=== PATIENT | male | born 1995 | race Caucasian/White ===

== ENCOUNTER 2022-07-18 15:40 | Emergency (ER) | payer BC ==
[2022-07-18 15:51] VITALS: BP 148/92; PULSE 80; RESP 16; TEMP 98
[2022-07-18] MEDS ORDERED: DIPH,PERTUS(ACELL)TETVAC-LF 0.5 ML VIAL IM ONE (16:32)
[2022-07-18] MEDS ORDERED: LIDOCAINE 1% INJ 10MG/ML (30 ML VIAL-PF) SQ ONE (16:33)
--- NOTE | 2022-07-18 16:40 | ED ---
Wound/Laceration HPI - General Chief Complaint: Wound/Laceration Stated Complaint: L hand lac Time Seen by Provider: 07/18/22 16:13 Source: patient Mode of arrival: ambulatory - History of Present Illness Initial Comments: Patient is a 26-year-old male presents to the emergency department with a chief complaint of left thumb injury. Patient accidentally drilled his left thumb n ail. He reports minimal pain. No numbness or tingling. Tetanus not up-to-date. Patient already takes Motrin 600 [id number]. - Related Data Home Medications Medication Instructions Recorded Confirmed Loratadine [Claritin] 10 mg PO DAILY PRN 08/02/14 10/21/14 Previous Rx's Medication Instructions Recorded Docusate [Colace] 100 mg PO BID #30 capsule 10/21/14 Hydrocodone/Acetaminophen [[place] 1 each PO Q6HR PRN #30 tab 10/21/14 5-325] Allergies Allergy/AdvReac Type Severity Reaction Status Date / Time Milk Containing Products Allergy Unknown Verified 10/21/14 13:29 Review of Systems ROS Statement: Those systems with pertinent positive or pertinent negative responses have been documented in the HPI. ROS Other: All systems not noted in ROS Statement are negative. Past Medical History Past Medical History: No Reported History, GERD/Reflux Additional Past Medical History / Comment(s): MANY ENVIRONMENTAL ALLERGIES. 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 Absent: respiratory distress, wheezes, rales, rhonchi, stridor Cardiovascular Exam: Present: regular rate, normal rhythm, normal heart sounds. Absent: systolic murmur, diastolic murmur, rubs, gallop, clicks Extremities exam: Present: other (left thumb: injury to proximal nail bed without subungual hematoma. No laceration. Neurovascularly intact. Full range of motion of thumb) Neurological exam: Present: alert, oriented X3, CN II-XII intact Psychiatric exam: Present: normal affect, normal mood Skin exam: Present: warm, dry, intact, normal color. Absent: rash Course Vital Signs 07/18/22 15:49 Temperature 98.0 F Pulse Rate 80 Respiratory 16 Rate Blood Pressure 148/92 O2 Sat by Pulse 98 Oximetry Medical Decision Making - Medical Decision Making This is a 26-year-old presenting with left thumb injury. There is mild injury to the proximal nail bed without evidence of subungual hematoma. No laceration. Left hand x-ray obtained and interpreted by me which shows no fracture or evidence of foreign body. Tetanus updated and wound cleaned thoroughly. Wound education provided in detail. Patient to follow-up with primary care provider. Dr. Myers is my attending. Disposition Clinical Impression: Injury of left thumb Disposition: HOME SELF-CARE Condition: Good Instructions (If sedation given, give patient instructions): Acute Wound Care (ED) Additional Instructions: Leave wound uncovered. Keep wound clean and dry. Wash with a mild soap. Take Tylenol or anti-inflammatories such as Motrin for pain. Follow-up with primary care provider in 1-2 days. Report back to the emergency department if you experience new, concerning, or worsening symptoms. Is patient prescribed a controlled substance at d/c from ED?: No Referrals: None,Stated [Primary Care Provider] - 1-2 days Time of Disposition: 16:39
--- NOTE | 2022-07-18 16:58 | XR ---
EXAMINATION TYPE: XR hand limited LT DATE OF EXAM: 07/18/2022 4:36 PM INDICATION: Patient age:Male; 26 years old; Reason for study: laceration; COMPARISON: None TECHNIQUE: Frontal, lateral and oblique views of the frontal and lateral hand were obtained. FINDINGS: Normal alignment of the visualized joints. No acute osseous pathology is identified. No e vidence of soft tissue swelling. No radiopaque foreign body. IMPRESSION: 1. No acute osseous pathology. 2. No radiopaque foreign body.
== END 2022-07-18 17:16 | disposition home or self-care (01) ==
LOC: EC 15:40
DX: S61.102A Unspecified open wound of left thumb with damage to nail, initial encounter (principal); K21.9 Gastro-esophageal reflux disease without esophagitis; Z91.011 Allergy to milk products; Z23 Encounter for immunization; W27.8XXA Contact with other nonpowered hand tool, initial encounter
CPT/HCPCS: 99283; 90471; 73120; 90715; J2001